=== PATIENT | male | born 1955 | race Caucasian/White ===

== ENCOUNTER → 2017-08-26 | Day surgery (SDC) | payer OTHER ==
[2017-08-23 08:24] LABS: BASOPHIL % 0.6 % (0-2); PLATELET COUNT 285 x10^3mcL (130-400)
[2017-08-23 08:43] LABS: ALBUMIN 3.9 g/dL (3.4-5.0); ALKALINE PHOSPHATASE 71 U/L (46-116); ALT/SGPT 33 U/L (16-63); AST/SGOT 20 U/L (15-37); BILIRUBIN TOTAL 0.6 mg/dL (0.20-1.00); CARBON DIOXIDE 29.9 mmol/L (21-32); CHLORIDE SERUM 106 mmol/L (98-107); CREATININE SERUM 1.2 mg/dL (0.7-1.3); GFR1 > 60 mL/min; GLUCOSE SERUM 111 mg/dL (74-106); POTASSIUM SERUM 4.8 mmol/L (3.5-5.1); SODIUM SERUM 142 mmol/L (136-145); TOTAL PROTEIN, SERUM 7.2 g/dL (6.4-8.2)
[~2017-08-26] VITALS: Ht 175.3 cm; Wt 86.2 kg
[2017-08-26 06:08] VITALS: BP 142/85
[2017-08-26 13:41] VITALS: BP 124/74
== END | disposition home or self-care (01) ==
LOC: DS 05:59 → OR 07:30 → DS 07:30
PROVIDERS: Surgery
PROC: 0YU60JZ Supplement Left Inguinal Region with Synthetic Substitute, Open Approach (ICD-10-PCS; 2017-08-26)
PROC: 0YU50JZ Supplement Right Inguinal Region with Synthetic Substitute, Open Approach (ICD-10-PCS; principal; 2017-08-26 07:30)
DX: K40.91 Unilateral inguinal hernia, without obstruction or gangrene, recurrent (principal); K40.90 Unilateral inguinal hernia, without obstruction or gangrene, not specified as recurrent; I10 Essential (primary) hypertension; Z68.28 Body mass index [BMI] 28.0-28.9, adult; Z79.82 Long term (current) use of aspirin
CPT/HCPCS: C1781; J0330; J0690; J2175; J2250; J2405; J2704; J3010; J3490; J7120

== ENCOUNTER 2018-07-18 06:51 | Day surgery (SDC) | payer OTHER ==
[~2018-07-18] VITALS: Ht 175.3 cm; Wt 86.2 kg
[2018-07-18 07:41] VITALS: BP 142/94
[2018-07-18 09:49] VITALS: BP 119/81
== END 2018-07-18 09:40 | disposition home or self-care (01) ==
LOC: GI 06:51 → OR 08:30 → GI 09:40
PROVIDERS: Internal Medicine Gastroenterology
PROC: 0DJD8ZZ Inspection of Lower Intestinal Tract, Via Natural or Artificial Opening Endoscopic (ICD-10-PCS; principal; 2018-07-18 08:30)
DX: Z12.11 Encounter for screening for malignant neoplasm of colon (principal); K57.30 Diverticulosis of large intestine without perforation or abscess without bleeding; K64.8 Other hemorrhoids; I10 Essential (primary) hypertension; F17.220 Nicotine dependence, chewing tobacco, uncomplicated; Z68.28 Body mass index [BMI] 28.0-28.9, adult; Z86.010 Personal history of colon polyps; Z79.82 Long term (current) use of aspirin
CPT/HCPCS: 45378; G0500; J1200; J1610; J2250; J2310; J3010; J3490